=== PATIENT | female | born 1970 | race Caucasian/White ===

== ENCOUNTER 2019-10-22 09:06 | Emergency (ER) | payer BC, SELFPAY ==
[2019-10-22 09:07] VITALS: BP 148/84; PULSE 61; RESP 16; TEMP 36.2; O2SAT 100; BMI 28.3
--- NOTE | 2019-10-22 09:30 | RAD_ITS ---
STUDY: X-RAY - LUMBAR SPINE REASON FOR EXAM: Female, 49 years old. BACK PAIN S/P FALL THIS MORNING TECHNIQUE: 3 view(s) of the lumbar spine were obtained. COMPARISON: None FINDINGS: Normal lumbar lordosis. There is no substantial scoliosis. There is a normal alignment of the vertebrae. Normal vertebral bodies and endplates. Moderate degree of disc space narrowing at the L5-S1 level with mild anterior spondylosis. The soft tissue structures are unremarkable. RAD/Lumbar Spine 2 or 3 Views IMPRESSION: Degenerative changes of the spine, as detailed above. Electronically Signed: Tre Nielsen, at 10:22 EDT , Service support ,
--- NOTE | 2019-10-22 09:30 | RAD_ITS ---
STUDY: X-RAY - PELVIS AND LEFT HIP REASON FOR EXAM: Female, 49 years old. BACK PAIN S/P FALL THIS MORNING -- LEFT HIP PAIN TECHNIQUE: 3 views of the pelvis and hip. COMPARISON: None. FINDINGS: There is a non-specific bowel gas pattern. There are multiple calcified phleboliths. Normal bilateral iliac wings, sacroiliac joints and visualized sacrum. Normal bilateral superior and inferior pubic rami. Normal pubic symphysis. Normal bilateral ischial tuberosities. Normal visualized femoral head. Normal acetabulum. Normal hip joint. RAD/HIP, UNI W/ Pelvis 2-3 Views IMPRESSION: Normal x-ray examination of the pelvis and hip. Electronically Signed: Tre Nielsen, at 10:25 EDT , Service support ,
[2019-10-22] MEDS: HYDROcodone Bitartrate/Apap 5/325 Tablet PO (09:35)
--- NOTE | 2019-10-22 10:43 | ED.DCSUM_ITS ---
- ER Visit Summary Date of Service: 10/22/19 Chief Complaint: Back pain History of Present Illness: The patient is a 49 F with left low back pain. The patient's left leg gave out and she fell on the stairs. She landed on her back. No other injuries or complaints. Physical Examination: Afebrile and vital signs unremarkable. She has abrasions to her left lower back. There is tenderness to the area. No spinal tenderness. Hip is also diffusely tender on the left. No shortening or abnormal rotation. She is able to bear weight. Neurovascularly intact. Test Results: X-rays of her lumbar spine and left hip/pelvis were unremarkable for anything acute. Emergency Department Course and Treatment: Patient was treated with pain medicine while awaiting results. X-rays, exam, symptoms, and history are reassuring. This is likely myofascial pain. She will be treated with anti- inflammatories and muscle relaxers. Follow-up with primary care. Return for any new or worsening issues. Treatment Plan: As above Disposition: Discharge Impression: Lumbar back pain This note was generated with [employer] dictation software. It may contain incorrect words, spelling, and punctuation that were not noted in review of the chart prior to signing ED Disposition - Plan for ED Patient: Referrals: Urbano Cr MD [Primary Care Provider] -
--- NOTE | 2019-10-22 10:44 | ED.DEP ---
ED Disposition - Plan for ED Patient: Instructions: ED Contusion Back Prescriptions: cycloBENZAPRine HCl [Flexeril] 10 mg PO TID PRN #20 tab PRN Reason: Muscle Spasm Prescription Printed Naproxen [Naprosyn] 500 mg PO BID PRN #20 tab Prescription Printed Referrals: Urbano Cr MD [Primary Care Provider] -
--- NOTE | 2019-10-22 10:55 | ED.RN ---
DISCHARGE INSTRUCTIONS GIVEN TO AND REVIEWED WITH PATIENT, PATIENT DENIES QUESTIONS OR CONCERNS AND VOICES UNDERSTANDING OF DISCHARGE INSTRUCTIONS. PT TO PRIVATE VEHICLE VIA WHEELCHAIR.
== END 2019-10-22 10:57 | disposition home or self-care (01) ==
PROVIDERS: Emergency Provider Emergency Medicine
DX: M54.5 Low back pain (principal); Z72.0 Tobacco use
CPT/HCPCS: 72100; 73502; 99282